=== PATIENT | male | born 1995 | race Two or more races ===

== ENCOUNTER 2024-09-19 21:43 | Emergency (ER) | payer OTHER ==
[~2024-09-19] VITALS: Ht 180.3 cm; Wt 103.2 kg
[2024-09-19] MEDS: KETOROLAC TROMETH 60MG/2ML VIAL IM ONE (23:15)
--- NOTE | 2024-09-19 23:39 | DVH ---
CLINICAL INDICATION: Trauma/fall TECHNIQUE: XY L CLAVICLE COMPLETE XRAY Comparison: None FINDINGS/IMPRESSION: Displaced acute traumatic fracture of the left midclavicle. Soft tissues are unremarkable.
--- NOTE | 2024-09-19 23:42 | DVH ---
EXAMINATION: XY L RIB X RAY INDICATION: Trauma /fall COMPARISON: None TECHNIQUE: Frontal view of the chest and 4 views of the left ribs history FINDINGS: No focal consolidation, pleural effusion or significant pneumothorax. Normal cardiomediastinal silhou ette. Minimally displaced anterolateral left 4th rib fracture. A significantly displaced overriding fractur e of the midshaft of the left clavicle has resulted in approximately 1.8 cm frontal displacement of t he distal fracture fragment with approximately 2.0 cm overriding fragments. IMPRESSION: 1. Significantly displaced and overriding left mid shaft clavicle fracture and minimally displaced an terolateral left 4th rib fracture.
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
[2024-09-19] MEDS: HYDROcodone-ACET 10/325MG TAB PO ONE (23:55)
[2024-09-19 23:57] VITALS: PULSE 117; RESP 14; O2SAT 95
[2024-09-20] MEDS ORDERED: IBUP-1455 PO (00:12)
[2024-09-20] MEDS ORDERED: HYDR-4798 PO (00:21)
[2024-09-20 00:29] VITALS: BP 110/66; PULSE 105; RESP 12; TEMP 98.5; O2SAT 100
== END 2024-09-20 00:33 | disposition home or self-care (01) ==
LOC: ER 21:43
DX: S22.32XA Fracture of one rib, left side, initial encounter for closed fracture (principal); S42.022A Displaced fracture of shaft of left clavicle, initial encounter for closed fracture; W01.0XXA Fall on same level from slipping, tripping and stumbling without subsequent striking against object, initial encounter; Y93.89 Activity, other specified; Y92.89 Other specified places as the place of occurrence of the external cause; Y99.8 Other external cause status
CPT/HCPCS: 71101; 73000